=== PATIENT | female | born 1970 | race Hispanic/Latino ===

== ENCOUNTER 2017-10-23 12:00 | Outpatient (CLI) | payer OTHER, SELFPAY | END 2017-10-23 12:01 | disposition home or self-care (01) | LOC: BICRAD 12:00 | PROVIDERS: ATTEND Family Medicine | DX: J45.909 Unspecified asthma, uncomplicated (principal); R05 Cough | CPT/HCPCS: 71046 ==

== ENCOUNTER 2019-01-09 23:50 | Emergency (ER) | payer SELFPAY | END 2019-01-10 01:08 | disposition home or self-care (01) | LOC: ERS 23:50 | DX: T65.891A Toxic effect of other specified substances, accidental (unintentional), initial encounter (principal); J45.909 Unspecified asthma, uncomplicated | CPT/HCPCS: 99283 ==

== ENCOUNTER 2019-07-01 14:45 | Emergency (ER) | payer SELFPAY ==
[2019-07-01] MEDS ORDERED: Acetaminophen 325 MG TAB ONE (16:06)
== END 2019-07-01 16:35 | disposition home or self-care (01) ==
LOC: ERS 14:45
DX: J01.90 Acute sinusitis, unspecified (principal); J45.909 Unspecified asthma, uncomplicated; Z79.51 Long term (current) use of inhaled steroids
CPT/HCPCS: 87804; 99284

== ENCOUNTER 2019-07-28 15:32 | Emergency (ER) | payer SELFPAY ==
--- NOTE | 2019-07-28 16:01 | RAD ---
EXAM: Chest 2 views: HISTORY: Cough and asthma flare COMPARISON: 09/07/2015 FINDINGS: There is a normal-sized cardiomediastinal silhouette. There is no evidence of consolidation, mass, or pleural effusion. The bones are unremarkable. IMPRESSION: No evidence of acute cardiopulmonary disease
== END 2019-07-28 17:50 | disposition home or self-care (01) ==
LOC: ERS 15:32
DX: T78.40XA Allergy, unspecified, initial encounter (principal); J45.909 Unspecified asthma, uncomplicated; Z79.899 Other long term (current) drug therapy
CPT/HCPCS: 71046

== ENCOUNTER 2019-08-22 17:09 | Emergency (ER) | payer SELFPAY ==
[2019-08-22 19:50] LABS: #Basophils 0.1 thou/uL (0.0-0.2); #Eosinphils 0.1 thou/uL (0.0-0.7); #Lymphocytes 2.1 thou/uL (1.20-3.40); #Monocytes 0.4 thou/uL (0.11-0.59); #Neutrophils 4.1 thou/uL (1.40-6.50); %Basophils 1.4 % (0.0-1.0); %Eosinophils 1.5 % (0.0-10.0); %Lymphocytes 30.5 % (21.0-51.0); %Monocytes 5.5 % (0.0-10.0); %Neutrophils 61.1 % (42.0-75.0); Hemoglobin 12.9 g/dL (12.0-16.0); Mean Corpuscular HGB CONC 33.8 g/dL (32.0-36.0); Mean Corpuscular Hemoglobin 29.5 pg (27.0-31.0); Mean Corpuscular Volume 87.1 fL (78.0-98.0); Platelet Count 285 thou/uL (130-400); RBC Distribution Width 13.5 % (11.5-14.5); Red Blood Cell (RBC) Count 4.36 mill/uL (4.20-5.40); White Blood Cell (WBC) Count 6.8 thou/uL (4.8-10.8)
--- NOTE | 2019-08-22 19:53 | RAD ---
XR Chest Pa Lat STANDARD HISTORY: Chest pain and cough COMPARISON: 07/28/2019 FINDINGS: The heart size is normal. The lungs are well expanded without focal areas of consolidation, pneumothorax or pleural effusions. IMPRESSION: No radiographic evidence of acute cardiopulmonary process.
[2019-08-22 20:15] LABS: ALT (SGPT) 11 U/L (8-55); AST (SGOT) 16 U/L (5-34); Albumin 4.1 g/dL (3.5-5.0); Alkaline Phosphatase 63 U/L (40-110); Anion Gap 10 mmol/L (10-20); BUN (Urea Nitrogen) 6 mg/dL (7.0-18.7); Bilirubin, Total 0.3 mg/dL (0.2-1.2); Calc. Creatinine Clearance 0 mL/min (70-130); Calcium 10.1 mg/dL (7.8-10.44); Carbon Dioxide 28 mmol/L (22-29); Chloride 105 mmol/L (98-107); Estimated GFR-MDRD 88; Globulin 3.1 g/dL (2.4-3.5); Glucose 87 mg/dL (70-105); Potassium 3.5 mmol/L (3.5-5.1); Protein, Total 7.2 g/dL (6.0-8.3); Sodium 139 mmol/L (136-145)
[2019-08-22] MEDS ORDERED: Azithromycin 250 MG TAB ONE (20:37)
== END 2019-08-22 20:44 | disposition home or self-care (01) ==
LOC: ERS 17:09
DX: J18.9 Pneumonia, unspecified organism (principal); J45.909 Unspecified asthma, uncomplicated
CPT/HCPCS: 36415; 71046; 80053; 84484; 85025; 93005

== ENCOUNTER 2020-05-15 16:13 | Outpatient (CLI) | payer OTHER ==
--- NOTE | 2020-05-15 16:40 | RAD ---
EXAM: Two views chest PROVIDED CLINICAL HISTORY: Cough COMPARISON: 08/22/2019 FINDINGS: Cardiac and mediastinal silhouette appears within normal limits. Lungs appear free of significant opa city. No pleural fluid or pneumothorax apparent. IMPRESSION: No evidence for an acute cardiopulmonary process.
== END 2020-05-15 16:14 | disposition home or self-care (01) ==
LOC: BICRAD 16:13
PROVIDERS: ATTEND Family Medicine
DX: R05 Cough (principal)
CPT/HCPCS: 71046

== ENCOUNTER 2022-02-04 08:39 | Outpatient (CLI) | payer OTHER | END 2022-02-04 08:40 | disposition home or self-care (01) | LOC: BICMAMMO 08:39 | PROVIDERS: ATTEND Family Medicine | DX: Z12.31 Encounter for screening mammogram for malignant neoplasm of breast (principal) | CPT/HCPCS: 77063; 77067 ==